=== PATIENT | female | born 1945 | race Caucasian/White ===

== ENCOUNTER → 2018-04-16 | Outpatient (CLI) | payer BC | END | disposition home or self-care (01) | LOC: PCVCCLINIC 10:39 | PROVIDERS: ATTEND Internal Medicine | DX: I49.9 Cardiac arrhythmia, unspecified (principal); R05 Cough; M06.9 Rheumatoid arthritis, unspecified; E78.5 Hyperlipidemia, unspecified; I10 Essential (primary) hypertension | CPT/HCPCS: 36415; 80061; 93005; G0463 ==

== ENCOUNTER → 2018-05-23 | Outpatient (CLI) | payer BC ==
--- NOTE | 2018-05-23 10:55 | PCVCIMAG ---
APPROVED REPORT Study performed: 05/23/2018 09:11:24 EXAM: Comprehensive 2D, Doppler, and color-flow Echocardiogram Patient Location: Echo lab Status: routine BSA: 1.80 HR: 64 bpmBP: 160/80 mmHg Rhythm: NSR Other Information Study Quality: Adequate Risk Factors: Cardiac Risk Factors: HTN, Hyperlipidemia Indications Dyspnea Palpitations 2D Dimensions IVSd: 13.42 (7-11mm)LVOT Diam: 20.49 (18-24mm) LVDd: 42.29 mm PWd: 10.61 (7-11mm)Ascending Ao: 33.06 (22-36mm) LVDs: 31.02 (25-40mm) Left Atrium: 39.24 (27-40mm) Aortic Root: 21.93 mm LV Single Plane 4CH: 67.58 % LV Single Plane 2CH: 67.04 % Biplane EF: 67.7 % Volumes Left Atrial Volume (Systole) Single Plane 4CH: 56.37 mLSingle Plane 2CH: 59.22 mL LA ESV Index: 34.00 mL/m2 Aortic Valve AoV Peak Tayo.: 2.63 m/s AO Peak Gr.: 27.76 mmHgLVOT Max P.00 mmHg AO Mean Gr.: 15.88 mmHgLVOT Mean P.72 mmHg AO V2 Mean: 1.91 m/sLVOT Max V: 1.28 m/s AO V2 VTI: 61.39 cmLVOT Mean V: 0.92 m/s GARRY (VTI): 1.59 [id number] V1 VTI: 29.56 cm GARRY Vmax: 1.60 cm2 AI Vmax: 3.76 m/sSV (LVOT): 97.44 mL AI Luna: 2.09 m/s2 AI PHT: 522.78 ms Mitral Valve E/A Ratio: 1.0 MV Decel. Time: 216.21 ms MV E Max Tayo.: 0.95 m/s MV A Tayo.: 0.95 m/s IVRT: 134.95 ms TDI E/Lateral E': 8.64E/Medial E': 11.88 Medial E' Tayo.: 0.08 m/s Lateral E' Tayo.: 0.11 m/s Pulmonary Valve PV Peak Gr.: 4.17 mmHg Pulmonary Vein P Vein S: 0.53 m/sP Vein A: 0.32 m/s P Vein D: 0.35 m/sP Vein A Dur.: 100.3 msec P Vein S/D Ratio: 1.51 Left Ventricle The left ventricle is normal size. There is normal LV segmental wall motion. There is normal left ventricular wall thickness. Left ventricular systolic function is normal. The left ventricular ejection fraction is within the normal range. LVEF is 55-60%. The left ventricular diastolic function is normal. Right Ventricle The right ventricle is normal size. The right ventricular systolic function is normal. Atria The left atrium size is normal. The right atrium size is normal. Aortic Valve Aortic valve leaflets are mildly thickened. Trace aortic regurgitation. Peak gradient of 28mmHg. Mean gradient 16mmHg. Calculated aortic valve area 1.6cm2. Mitral Valve The mitral valve is normal in structure. There is no mitral valve regurgitation noted. No evidence of mitral valve stenosis. Tricuspid Valve The tricuspid valve is normal in structure. There is no tricuspid valve regurgitation noted. Pulmonic Valve The pulmonary valve is normal in structure. There is no pulmonic valvular regurgitation. Great Vessels The aortic root is normal in size. IVC is normal in size and collapses >50% with inspiration. Pericardium There is no pericardial effusion. <Conclusion> The left ventricle is normal size. LVEF is 55-60%. Aortic valve leaflets are mildly thickened. Trace aortic regurgitation. Peak gradient of 28mmHg. Mean gradient 16mmHg. Calculated aortic valve area 1.6cm2. The mitral valve is normal in structure. The tricuspid valve is normal in structure. The pulmonary valve is normal in structure. The aortic root is normal in size. There is no pericardial effusion.
== END | disposition home or self-care (01) ==
LOC: PCVCIMAG 10:58
PROVIDERS: ATTEND Internal Medicine
DX: R00.2 Palpitations (principal); R06.00 Dyspnea, unspecified; I50.32 Chronic diastolic (congestive) heart failure
CPT/HCPCS: 93306